=== PATIENT | male | born 1945 | race Caucasian/White ===

== ENCOUNTER 2017-03-19 21:38 | Emergency (ER) | payer OTHER ==
[~2017-03-19] VITALS: Ht 182.9 cm; Wt 112.8 kg
[~2017-03-19 21:38] MED LIST: ALEVE220 M1 PO; CELEXA20 MG PO; CINNAMON BARK500 MG PO; Cinnamon Bark PO; Ecotrin PO; FLOMAX0.4 MG PO; Feosol PO; GLIMEPIRIDE4 MG PO; LIPITOR20 MG PO; LIPITOR40 MG PO; LOSARTAN-HCTZ1 EAC2 PO; Lipitor PO; METFORMIN HCL1000 M1 PO; METOPROLOL TART50 MG PO; Mobic PO; NORVASC10 MG PO; OMEPRAZOLE20 M3 PO; OMEPRAZOLE20 MG PO; OSTEO BI-FLEX1 EACH PO; OXYCODONE-ACET1 EACH PO; Osteo-Biflex,Flex-A- PO; PERCOCET 5/31 TABLET PO; PriLOSEC PO; QUINAPRIL HCL40 MG PO; SENOKOT S,PE1 TABLET PO; SUCRALFATE1 GM PO; Tylenol Regular Stre PO; VITAMIN B-650 MG PO; VITAMIN E400 UNIT PO; Vicodin,Norco 5/325 PO; WARFARIN SODIU2.5 MG PO; ZOFRAN ODT8 MG PO
[2017-03-19 23:52] LABS: INTER. NORMALIZED RATIO 2.3; PROTHROMBIN TIME 23.9 (9.2-11.2)
[2017-03-20 00:51] VITALS: BP 167/115
== END 2017-03-20 00:51 | disposition home or self-care (01) ==
LOC: EME 21:38
PROVIDERS: Emergency Medicine
DX: S00.83XA Contusion of other part of head, initial encounter (principal); S02.2XXA Fracture of nasal bones, initial encounter for closed fracture; W01.0XXA Fall on same level from slipping, tripping and stumbling without subsequent striking against object, initial encounter; Y93.73 Activity, racquet and hand sports; Y92.312 Tennis court as the place of occurrence of the external cause; I48.91 Unspecified atrial fibrillation; Z79.01 Long term (current) use of anticoagulants; I10 Essential (primary) hypertension; E11.9 Type 2 diabetes mellitus without complications; Z79.84 Long term (current) use of oral hypoglycemic drugs
CPT/HCPCS: 70450; 70486; 85610; 99281; 99283

== ENCOUNTER 2017-11-26 18:02 | Observation (INO) | payer OTHER ==
[~2017-11-26] VITALS: Ht 182.9 cm; Wt 110.2 kg
[~2017-11-26 18:02] MED LIST changes: +GLUCOPHAGE500 MG PO; -METFORMIN HCL1000 M1 PO
[2017-11-26 19:31] LABS: HEMOGLOBIN 13.8 G/DL (12.5-16.6); MCH 29.8 PG (29.0-34.0); MCHC 33.7 G/DL (30.0-36.0); MCV 88.6 FL (86-99); PLATELET COUNT 236 K/uL (156-360); RBC DIS.WIDTH-CV 14.1 % (11.8-14.6); RBC DIS.WIDTH-SD 45.5 % (39-53); RED BLOOD COUNT 4.63 M/uL (4.00-5.50); WHITE BLOOD COUNT 10.6 K/uL (4.1-10.2)
[2017-11-26 19:43] LABS: CHLORIDE 105 mEq/L (99-109); POTASSIUM 4.3 mEq/L (3.7-5.4); SODIUM 140 mEq/L (136-147)
[2017-11-26 19:44] LABS: GLUCOSE 145 mg/dL (70-99)
[2017-11-26 19:48] LABS: CREATININE 1.4 mg/dL (0.6-1.3); GFR ESTIMATE (CALCULATED) 53 mL/min/ (58.99-99999)
[2017-11-26 19:49] LABS: UREA NITROGEN (BUN) 22 mg/dL (9-23)
[2017-11-26 19:53] LABS: TROP-I INTERPRETATION NEGATIVE; TROPONIN-I < 0.01 ng/mL (0.0-0.30)
[2017-11-26 20:29] LABS: INTER. NORMALIZED RATIO 3.5
[2017-11-26] MEDS ORDERED: FLOMAX0.4 MG PO (20:49)
[2017-11-26] MEDS ORDERED: CLARITIN,ALAVAR10 MG PO (20:50)
[2017-11-26] MEDS ORDERED: TAMBOCOR50 MG PO (20:51)
[2017-11-26] MEDS ORDERED: ASCORBIC ACID500 M3 PO (20:51)
[2017-11-26] MEDS ORDERED: CIPRO750 MG PO (20:51)
[2017-11-26] MEDS ORDERED: VITAMIN D22000 UNIT PO (20:51)
[2017-11-26] MEDS ORDERED: BIOFREEZE TP (20:52)
[2017-11-26] MEDS ORDERED: VENTOLIN HFA18 GM IH (20:53)
[2017-11-26] MEDS ORDERED: [UNRECOGNIZED DRUG - OTHER] SL (20:54)
[2017-11-26] MEDS ORDERED: NATURAL BALANCE15 M1 BOTH EYES (20:54)
[2017-11-26 22:42] VITALS: BP 151/68
[2017-11-27 02:26] LABS: TROP-I INTERPRETATION NEGATIVE; TROPONIN-I < 0.01 ng/mL (0.0-0.30)
[2017-11-27 03:48] VITALS: BP 110/55
[2017-11-27 08:56] VITALS: BP 133/62
[2017-11-27 09:41] LABS: INTER. NORMALIZED RATIO 3.8
[2017-11-27 09:54] LABS: CHLORIDE 104 MEQ/L (99-109); CREATININE 1.4 MG/DL (0.6-1.3); GFR ESTIMATE (CALCULATED) 53 mL/min/ (58.99-99999); GLUCOSE 160 mg/dL (70-99); POTASSIUM 4.3 MEQ/L (3.7-5.4); SODIUM 143 MEQ/L (136-147); UREA NITROGEN (BUN) 22 mg/dL (9-23)
[2017-11-27 10:00] LABS: TROP-I INTERPRETATION NEGATIVE; TROPONIN-I < 0.01 ng/mL (0.0-0.30)
[2017-11-27 10:04] LABS: HDL CHOLESTEROL 34 MG/DL (Desirable>=40); LDL CHOLESTEROL 65 mg/dL (Desirable<100); NON-HDL CHOLESTEROL 99 mg/dL (Desirable<160); TOTAL CHOLESTEROL 133 mg/dL (Desirable<200); TRIGLYCERIDES 171 MG/DL (Normal: <150)
[2017-11-27 11:14] LABS: HEMOGLOBIN A1c (GLYCOHEMOGLOB) 8.6 % (Below 5.7)
[2017-11-27 12:33] VITALS: BP 119/67
== END 2017-11-27 15:13 | disposition home or self-care (01) ==
LOC: EME 18:02 → EDOF 21:35 → ENRESERV 21:37 → 5WEST 22:19 → ENRESERV 11-27 09:44 → 5WEST 11-27 15:13
PROVIDERS: Hospitalist; Physician Assistant Medical
DX: R07.9 Chest pain, unspecified (principal); R55 Syncope and collapse; I48.0 Paroxysmal atrial fibrillation; R79.1 Abnormal coagulation profile; G47.33 Obstructive sleep apnea (adult) (pediatric); E11.22 Type 2 diabetes mellitus with diabetic chronic kidney disease; I13.10 Hypertensive heart and chronic kidney disease without heart failure, with stage 1 through stage 4 chronic kidney disease, or unspecified chronic kidney disease; N18.3 Chronic kidney disease, stage 3 (moderate); K44.9 Diaphragmatic hernia without obstruction or gangrene; F41.9 Anxiety disorder, unspecified; M19.90 Unspecified osteoarthritis, unspecified site; Z87.442 Personal history of urinary calculi; Z96.652 Presence of left artificial knee joint; Z82.49 Family history of ischemic heart disease and other diseases of the circulatory system; Z79.01 Long term (current) use of anticoagulants; Z79.84 Long term (current) use of oral hypoglycemic drugs; Z83.3 Family history of diabetes mellitus; Z88.8 Allergy status to other drugs, medicaments and biological substances; Z91.09 Other allergy status, other than to drugs and biological substances; Z88.1 Allergy status to other antibiotic agents; Z91.19 Patient's noncompliance with other medical treatment and regimen
CPT/HCPCS: 71046; 80048; 80061; 82948; 83036; 84484; 85027; 85610; 93005; G0378; J2405; J7030

== ENCOUNTER 2018-03-30 02:04 | Emergency (ER) | payer OTHER ==
[~2018-03-30] VITALS: Ht 182.9 cm; Wt 108.2 kg
[~2018-03-30 02:04] MED LIST changes: +ASCORBIC ACID500 M3 PO; +BIOFREEZE TP; +CIPRO750 MG PO; +CLARITIN,ALAVAR10 MG PO; +NATURAL BALANCE15 M1 BOTH EYES; +TAMBOCOR50 MG PO; +VENTOLIN HFA18 GM IH; +VITAMIN D22000 UNIT PO; +[UNRECOGNIZED DRUG - OTHER] SL
[2018-03-30 02:31] LABS: HEMOGLOBIN 12.4 G/DL (12.5-16.6); MCH 29.8 PG (29.0-34.0); MCHC 34.4 G/DL (30.0-36.0); MCV 86.5 FL (86-99); PLATELET COUNT 207 K/uL (156-360); RBC DIS.WIDTH-CV 14.4 % (11.8-14.6); RBC DIS.WIDTH-SD 45.5 % (39-53); RED BLOOD COUNT 4.16 M/uL (4.00-5.50)
[2018-03-30 02:50] LABS: CHLORIDE 106 mEq/L (99-109); POTASSIUM 4.1 mEq/L (3.7-5.4); SODIUM 139 mEq/L (136-147)
[2018-03-30 02:59] LABS: APPEARANCE CLEAR ((CLEAR)); BILIRUBIN NEGATIVE; BLOOD SMALL; COLOR STRAW ((YELLOW)); GLUCOSE (STRIP) 50; KETONES NEGATIVE; LEUKOCYTES NEGATIVE; NITRITE NEGATIVE; PROTEIN (STRIP) NEGATIVE; SPECIFIC GRAVITY 1.012 (1.000-1.030); UROBILINOGEN 0.2 MG/DL (0.2-1.0)
[2018-03-30 03:01] LABS: GLUCOSE 187 mg/dL (70-99)
[2018-03-30 03:05] LABS: CREATININE 1.2 mg/dL (0.6-1.3); GFR ESTIMATE (CALCULATED) > 59 mL/min/ (58.99-99999)
[2018-03-30 03:06] LABS: UREA NITROGEN (BUN) 27 mg/dL (9-23)
[2018-03-30 03:13] LABS: BACTERIA RARE /HPF; EPITHELIAL CELLS RARE /HPF; MUCUS NONE SEEN /LPF; RED BLOOD CELLS 15-20 /HPF (0-5); UCUL ADDED? NO; WHITE BLOOD CELLS 0-5 /HPF (0-5)
[2018-03-30] MEDS ORDERED: FLOMAX0.4 MG PO (04:17)
[2018-03-30 04:54] VITALS: BP 119/56
== END 2018-03-30 04:56 | disposition home or self-care (01) ==
LOC: EME 02:04
DX: R10.32 Left lower quadrant pain (principal); I10 Essential (primary) hypertension; K21.9 Gastro-esophageal reflux disease without esophagitis; J45.909 Unspecified asthma, uncomplicated; G43.909 Migraine, unspecified, not intractable, without status migrainosus; F41.9 Anxiety disorder, unspecified; F32.9 Major depressive disorder, single episode, unspecified; Z79.01 Long term (current) use of anticoagulants; Z87.442 Personal history of urinary calculi; Z85.9 Personal history of malignant neoplasm, unspecified; Z88.8 Allergy status to other drugs, medicaments and biological substances; Z91.09 Other allergy status, other than to drugs and biological substances
CPT/HCPCS: 80048; 81003; 85027; 99281; 99284